=== PATIENT | male | born 2000 | race African-American/Black ===

== ENCOUNTER 2024-01-18 14:07 | Emergency (ER) | payer SELFPAY ==
[2024-01-18] MEDS: Sodium Chloride 0.9% 10 ML Syringe FLUSH PRN (15:36)
[2024-01-18] MEDS: methylPREDNISolone Sodium Succinate 125 MG/2 ML SDV IVPUSH ONE (15:36)
[2024-01-18] MEDS: HYDROmorphone 0.5 MG/0.5 ML Syringe IVPUSH ONE (15:39)
[2024-01-18 15:40] LABS: BASOPHILS PERCENT AUTO 0.9 % (0.0-1.0); EOSINOPHILS ABSOLUTE AUTO 0.2 K/mm3 (0.0-0.4); EOSINOPHILS PERCENT AUTO 3.7 % (0.0-6.0); HEMATOCRIT 43.4 % (42.0-52.0); HEMOGLOBIN 13.3 gm/dl (14.0-18.0); IMMATURE GRAN ABSOLUTE AUTO 0.02 K/mm3 (0.00-0.05); IMMATURE GRAN PERCENT AUTO 0.4 % (0.0-0.4); LYMPHOCYTES ABSOLUTE AUTO 2.3 K/mm3 (1.0-4.8); LYMPHOCYTES PERCENT AUTO 49.5 % (24.0-44.0); MEAN CORPUSCULAR HEMOGLOBIN 22.6 pg (28.0-32.0); MEAN CORPUSCULAR HGB CONC 30.6 g/dl (32.0-36.0); MEAN CORPUSCULAR VOLUME 73.8 fl (83.0-99.0); MEAN PLATELET VOLUME 10.7 fl (9.4-12.4); MONOCYTES ABSOLUTE AUTO 0.6 K/mm3 (0.0-0.8); MONOCYTES PERCENT AUTO 13.3 % (0.0-8.0); NEUTROPHILS ABSOLUTE AUTO 1.5 K/mm3 (1.8-7.7); NEUTROPHILS PERCENT AUTO 32.2 % (41.0-71.0); PLATELET COUNT,PLT 214 K/mm3 (150-400); RED BLOOD CELL COUNT 5.88 M/mm3 (4.52-5.90); WHITE BLOOD CELL COUNT,WBC 4.59 K/mm3 (3.9-11.3)
[2024-01-18] MEDS: Sodium Chloride 0.9% 1,000 ML IV SCH (15:41)
[2024-01-18 16:20] LABS: A/G RATIO 1.2 (1-2); ALANINE AMINOTRANSFERASE,ALT 49 U/L (16-63); ALKALINE PHOSPHATASE 70 U/L (46-116); ANION GAP 12.6 (5-15); ASPARTATE AMNIOTRANSFERASE,AST 31 U/L (15-37); BILIRUBIN TOTAL 0.2 mg/dL (0.2-1.0); BLOOD UREA NITROGEN,BUN 15 mg/dL (7-18); BUN/CREATININE RATIO 16.7 (14-18); CALCIUM 9.1 mg/dL (8.5-10.1); CARBON DIOXIDE,CO2 27 mEq/L (21-32); CHLORIDE,CL 104 mEq/L (98-107); CREATININE 0.9 mg/dL (0.7-1.3); EST CRCL DRUG DOSING (CG) 117.31 mL/min; ESTIMATED GFR 122 mL/min (>60); GLUCOSE RANDOM 77 mg/dL (70-99); POTASSIUM,K 3.6 mEq/L (3.5-5.1); PROTEIN TOTAL,TP 7.4 g/dl (6.4-8.2); SODIUM,NA 140 mEq/L (136-145)
[2024-01-18 16:21] LABS: C-REACTIVE PROTEIN < 0.05 mg/dL (<0.30)
== END 2024-01-18 17:33 | disposition home or self-care (01) ==
LOC: JD.ED 14:07
DX: M32.9 Systemic lupus erythematosus, unspecified (principal); F17.210 Nicotine dependence, cigarettes, uncomplicated
CPT/HCPCS: 36415; 80053; 85025; 85652; 86140; 96361; 96374; 96375; 99283-25; J1170; J2919; J3490; J7030

== ENCOUNTER 2024-02-28 03:27 | Emergency (ER) | payer SELFPAY ==
[2024-02-28] MEDS: Ibuprofen 600 MG Tab PO ONE (04:11)
== END 2024-02-28 05:03 | disposition home or self-care (01) ==
LOC: JD.ED 03:27
DX: M25.572 Pain in left ankle and joints of left foot (principal); F17.210 Nicotine dependence, cigarettes, uncomplicated; Z86.16 Personal history of COVID-19; Z79.899 Other long term (current) drug therapy
CPT/HCPCS: 73610; 99283; A9270